=== PATIENT | female | born 1925 | race Caucasian/White ===

== ENCOUNTER → 2016-11-11 | Outpatient (REF) | payer MEDICARE ==
[~2016-11-11] MED LIST: /AMIO20TA; /PANT40TA; /WARF25TA; ACET500T2; ACET65TA; ALDA25TA2; AMIO10TA; AMLO2.5T; ANTI25TA; CALC500T49; CILOSTAZOL; COLA100C2; CORE12.5; FLEXERIL; HYDR25TA6; LEVO75TA2; LIDO5DIS; LISI10TA4; LISI20TA5; MAGN500T2; METF500T4; MIRALEX; MULTIVIT; NITR0.4S; TEKTURNA; VICO5TAB; VITAMIN D; VITAMIN D50000 UNT; ZEBE5TAB; ZINC220T2
[2016-11-11 14:01] LABS: ALBUMIN 3.8 GM/DL (3.2-5.2); ALBUMIN/GLOBULIN RATIO 1.09 (1.00-1.93); BILIRUBIN,TOTAL 0.3 MG/DL (0.2-1.0); CALCIUM LEVEL 8.5 MG/DL (8.8-10.2); CREATININE FOR GFR 2.11 MG/DL (0.55-1.02); FREE T4 1.55 NG/DL (0.76-1.46); GLOMERULAR FILTRATION RATE 23.5 (>32); TOTAL PROTEIN 7.3 GM/DL (6.4-8.2)
[2016-11-11 14:02] LABS: POTASSIUM SERUM 5.4 MEQ/L (3.5-5.1)
== END ==
LOC: M SFHCADAM 11:00
PROVIDERS: ATTEND Family Medicine
DX: N18.4 Chronic kidney disease, stage 4 (severe) (principal); E11.8 Type 2 diabetes mellitus with unspecified complications; E03.9 Hypothyroidism, unspecified; I65.29 Occlusion and stenosis of unspecified carotid artery
CPT/HCPCS: 80053; 80061; 82306; 84439; 84443; 85610; G0463

== ENCOUNTER → 2016-11-12 | Outpatient (REF) | payer MEDICARE ==
[2016-11-12 12:10] LABS: MEAN CORPUSCULAR HEMOGLOBIN 33.6 pg (27.0-33.0); MEAN CORPUSCULAR HGB CONC 32.5 g/dl (32.0-36.5); MEAN CORPUSCULAR VOLUME 103.5 fl (80.0-96.0); RED CELL DISTRIBUTION WIDTH 14.2 % (11.5-14.5); WHITE BLOOD COUNT 2.3 K/mm3 (4.0-10.0)
[2016-11-12 12:43] LABS: FREE T4 1.46 NG/DL (0.76-1.46)
== END ==
LOC: M SFHCADAM 09:37
PROVIDERS: ATTEND Family Medicine
DX: N18.4 Chronic kidney disease, stage 4 (severe) (principal); E03.9 Hypothyroidism, unspecified; E11.8 Type 2 diabetes mellitus with unspecified complications

== ENCOUNTER → 2016-11-17 | Outpatient (CLI) | payer MEDICARE ==
--- NOTE | 2016-11-17 15:11 | REP ---
Clinical: Trauma. Comparison: 03/13/2015. Findings: Age-related atrophy and microvascular ischemic changes are appreciated. The ventricles and sulci are symmetric. Llanes-white differentiation is maintained. There is no evidence for acute intracranial hemorrhage, mass/mass effect, pathology or infarction. No extra-axial fluid collection. Calvarium is intact. Paranasal sinuses and mastoid air cells are clear. Impression: Age related atrophy and microvascular ischemic changes. No acute intracranial hemorrhage, infarction, or mass/mass effect. Signed by Lisandro Delgado MD 11/17/2016 03:03 P
== END ==
LOC: M RAD 14:37
PROVIDERS: ATTEND Physician Assistant
DX: S09.90XA Unspecified injury of head, initial encounter (principal); W18.09XA Striking against other object with subsequent fall, initial encounter; Y92.003 Bedroom of unspecified non-institutional (private) residence as the place of occurrence of the external cause; Y93.01 Activity, walking, marching and hiking; Y99.8 Other external cause status
CPT/HCPCS: 70450; G0463

== ENCOUNTER → 2016-11-25 | Outpatient (REF) | payer MEDICARE ==
[2016-11-25 19:03] LABS: CALCIUM LEVEL 8.8 MG/DL (8.8-10.2); CREATININE FOR GFR 2.19 MG/DL (0.55-1.02); GLOMERULAR FILTRATION RATE 22.5 (>32)
[2016-11-25 19:07] LABS: POTASSIUM SERUM 5.7 MEQ/L (3.5-5.1)
== END ==
LOC: M LABDRAW1 16:46
PROVIDERS: ATTEND Surgery Vascular Surgery
DX: I65.22 Occlusion and stenosis of left carotid artery (principal)
CPT/HCPCS: 36415; 80048; 85610; G0463

== ENCOUNTER → 2016-11-27 | Outpatient (CLI) | payer MEDICARE ==
[~2016-11-27] MED LIST changes: +HEPARIN 1,000 UNITS/ML 10ML VIAL (FOR RADIOLOGY& DIALYSIS ONLY) As Ordered ONE; +ISOVUE-300 61% 50ML VIAL (Q9967) As Ordered ONE; +MIDAZOLAM INJ 2 MG/2 ML VIAL (J2250) As Ordered ONE; +PROTAMINE SULF INJ 50 MG/5 ML VIAL (J2720) As Ordered ONE; +fentaNYL 100 MCG/2 ML INJECTION (J3010) As Ordered ONE
--- NOTE | 2016-12-03 18:48 | REP ---
IMAGES FOR CAROTID ANGIOGRAM: Clinical history: Carotid stenosis. Multiple images are performed during carotid angiogram. Catheter is seen selectively opacifying the vertebral and carotid arteries. 2.3 minutes fluoroscopy time utilized for the procedure. Signed by Te Llanes MD 12/03/2016 07:18 P
--- NOTE | 2016-12-24 13:19 | RO ---
DATE OF PROCEDURE: 11/27/2016 PREPROCEDURE DIAGNOSES: Left carotid artery stenosis, hypertension, dizziness. POSTPROCEDURE DIAGNOSES: Left carotid artery stenosis, hypertension, dizziness. SURGEON: Dr. Jose Jasso PHYSICAL THERAPY AIDES TEACHER: SHAYNE Martinez PROCEDURE: Selective left common carotid artery catheter placement with angiogram and run off, selective right innominate artery catheter placement with angiogram and run off, Mynx closure of the right common femoral arteriotomy. ANESTHESIA: Local with sedation with 0.5 mg of Versed, 25 mcg of Fentanyl, 10 mL of 2% lidocaine. Heparin 5000 units. ESTIMATED BLOOD LOSS: FLUORO TIME: 2.3 minutes. CONTRAST: 3 mL. SEDATION TIME: 8:15 a.m. to 8:37 a.m. with the sedation administered by the RN in the room, as well as cardiopulmonary monitoring performed by the nurse in the room under my direction. I was present for and directed the entire case. COMPLICATIONS: None. DRAINS: None. SPECIMENS: None. IMPLANTS: None. INDICATION: Patient is an 89-year-old female who had dizziness and hypertension and was evaluated and found to have a high grade left internal carotid artery stenosis, which at the time of the evaluation she was recommended to undergo a carotid endarterectomy. The patient followed up for a second opinion and I recommended a left carotid artery angiogram with possible angioplasty and/or stent and/or no intervention. The patient agreed to proceed with a carotid artery angiogram. Risks, included, but were not limited to infection, bleeding, cerebrovascular accident, renal failure requiring hemodialysis, myocardial infarction, pulmonary embolism, deep vein thrombosis (DVT), possible need for open surgical intervention, retroperitoneal hematoma, loss of limb, loss of life and poor outcome. Patient understands, accepts these risks and consents to proceed. Alternative treatment options were also discussed with the patient, which included no intervention. PROCEDURE: The patient was taken to the angiography suite and placed supine on the angiography room table. Prepped and draped in the standard surgical fashion after a time out was completed confirming the correct patient and procedure. The right common femoral artery was then cannulated with a micropuncture needle after anesthetizing the overlying skin with 1% lidocaine. The micropuncture wire was advanced through the micropuncture needle, which was upsized. A Guest[employer] wire was advanced through the micropuncture sheath, which was upsized to a #5-Gambian sheath. A burn catheter was then advanced through the aorta and into the right innominate artery and then angiogram performed. Initially, this was thought to be the left common carotid artery. The left common carotid artery was then selectively cannulated and angiogram performed. Catheters and wires were then removed. A Mynx closure device was used to close the arteriotomy in the right common femoral artery with an additional 15 minutes of adjunctive pressure applied for hemostasis. Dressings were then applied. Patient tolerated the procedure well. All instrument, sponge and needle counts were correct at the end of the case. There were no complications. Dr. Jasso was present for and directed the entire case. Patient was transferred to the recovery room and subsequently discharged in stable condition. RADIOLOGIC SUPERVISION INTERPRETATION: The initial selective right innominate artery angiogram showed the vertebral artery to be widely patent, as well as some diffuse plaquing of the common carotid artery and minor narrowing of the right internal carotid artery at its origin. The external carotid artery was patent, as well as the proximal right subclavian artery. The common carotid artery on the left was then selectively cannulated and an angiogram performed, which showed an approximate 80 to 85% stenosis in the left internal carotid artery shortly after its takeoff. There was approximate 50% stenosis in the left external carotid artery. The common carotid artery was widely patent. There was no intracerebral disease noted. Contrast limitations prevented full imaging of the cerebral vasculature. A Mynx closure device was used to close the arteriotomy in the right common femoral artery.
== END ==
LOC: M IRPRO 06:54
PROVIDERS: ATTEND Surgery Vascular Surgery
DX: I65.22 Occlusion and stenosis of left carotid artery (principal); Z88.0 Allergy status to penicillin; Z88.8 Allergy status to other drugs, medicaments and biological substances
CPT/HCPCS: 36223; 36225; 36227; 99152; C1760; C1769; C1887; C1894; J2250; J2720; J3010; Q9967

== ENCOUNTER → 2017-01-07 | Outpatient (REF) | payer MEDICARE ==
[~2017-01-07] MED LIST changes: -HEPARIN 1,000 UNITS/ML 10ML VIAL (FOR RADIOLOGY& DIALYSIS ONLY) As Ordered ONE; -ISOVUE-300 61% 50ML VIAL (Q9967) As Ordered ONE; -MIDAZOLAM INJ 2 MG/2 ML VIAL (J2250) As Ordered ONE; -PROTAMINE SULF INJ 50 MG/5 ML VIAL (J2720) As Ordered ONE; -fentaNYL 100 MCG/2 ML INJECTION (J3010) As Ordered ONE
== END ==
LOC: M SFHCADAM 09:56
PROVIDERS: ATTEND Family Medicine
DX: D53.9 Nutritional anemia, unspecified (principal); E11.8 Type 2 diabetes mellitus with unspecified complications; Z79.01 Long term (current) use of anticoagulants; E03.9 Hypothyroidism, unspecified; E78.2 Mixed hyperlipidemia

== ENCOUNTER → 2017-01-08 | Outpatient (REF) | payer MEDICARE ==
[2017-01-08 10:43] LABS: BASO % 0.8 % (0.0-1.0); EOS # 0.2 K/mm3 (0.0-0.50); EOS % 6.8 % (0.0-3.0); LARGE UNSTAINED CELL # 0.1 K/mm3 (0.0-0.4); LARGE UNSTAINED CELL % 2.6 % (0.0-4.0); LYMPH # 0.9 K/mm3 (1.5-4.5); LYMPH % 33.7 % (24.0-44.0); MEAN CORPUSCULAR HEMOGLOBIN 33.6 pg (27.0-33.0); MEAN CORPUSCULAR HGB CONC 33.1 g/dl (32.0-36.5); MEAN CORPUSCULAR VOLUME 101.5 fl (80.0-96.0); MONO # 0.2 K/mm3 (0.0-0.8); MONO % 6.1 % (0.0-5.0); NEUTROPHILS # 1.2 K/mm3 (1.8-7.7); NEUTROPHILS % 50.1 % (36.0-66.0); PLATELET COUNT, AUTOMATED 194 k/mm3 (150-450); RED CELL DISTRIBUTION WIDTH 13.4 % (11.5-14.5); RETIC HEMOGLOBIN CONTENT CHr 34.3 PG (24-36); RETICULOCYTE ABSOLUTE ADVIA212 60 x10(9)/L (17-77); WHITE BLOOD COUNT 2.5 K/mm3 (4.0-10.0)
[2017-01-08 11:25] LABS: ALBUMIN 3.8 GM/DL (3.2-5.2); ALBUMIN/GLOBULIN RATIO 1.06 (1.00-1.93); ALKALINE PHOSPHATASE 124 U/L (45-117); ALT/SGPT 24 U/L (12-78); ANION GAP 11 MEQ/L (8-16); AST/SGOT 18 U/L (15-37); BILIRUBIN,TOTAL 0.4 MG/DL (0.2-1.0); BLOOD UREA NITROGEN 26 MG/DL (7-18); CALCIUM LEVEL 8.7 MG/DL (8.8-10.2); CARBON DIOXIDE LEVEL 23 MEQ/L (21-32); CHLORIDE LEVEL 107 MEQ/L (98-107); CHOLESTEROL LEVEL 233 MG/DL (<200); CREATININE FOR GFR 2.07 MG/DL (0.55-1.02); FERRITIN 24 NG/ML (8-252); FREE T4 1.41 NG/DL (0.76-1.46); GLUCOSE, FASTING 91 MG/DL (83-110); PERCENT SATURATION 18.9 % (13.2-37.4); POTASSIUM SERUM 4.9 MEQ/L (3.5-5.1); SODIUM LEVEL 141 MEQ/L (136-145); TOTAL IRON BINDING CAPACITY 375 UG/DL (250-450); TOTAL PROTEIN 7.4 GM/DL (6.4-8.2); TRIGLYCERIDES LEVEL 130 MG/DL (<150)
[2017-01-10 00:15] LABS: FREE KAPPA LIGHT CHAINS SERUM 34.4 mg/L (3.3-19.4); FREE LAMBDA LIGHT CHAINS SERUM 68.6 mg/L (5.7-26.3); KAPPA/LAMBDA RATIO SERUM 0.5 (0.26-1.65)
[2017-01-11 13:36] LABS: ALBUMIN 4.25 GM/DL (3.29-5.55); ALBUMIN % 57.4 % (55.8-66.1); GAMMA GLOBULIN % 6.4 % (11.1-18.8)
== END ==
LOC: M SFHCADAM 08:24
PROVIDERS: ATTEND Family Medicine
DX: D53.9 Nutritional anemia, unspecified (principal); E11.8 Type 2 diabetes mellitus with unspecified complications; E03.9 Hypothyroidism, unspecified; E78.2 Mixed hyperlipidemia

== ENCOUNTER → 2017-01-27 | Outpatient (REF) | payer MEDICARE | LOC: M LAB REF 12:59 | PROVIDERS: ATTEND Internal Medicine Nephrology | DX: N18.4 Chronic kidney disease, stage 4 (severe) (principal); Z79.899 Other long term (current) drug therapy ==

== ENCOUNTER → 2017-02-03 | Outpatient (REF) | payer MEDICARE | LOC: M SFHCADAM 13:42 | PROVIDERS: ATTEND Family Medicine | DX: R77.8 Other specified abnormalities of plasma proteins (principal); Z51.81 Encounter for therapeutic drug level monitoring; Z79.01 Long term (current) use of anticoagulants ==

== ENCOUNTER → 2017-02-15 | Outpatient (CLI) | payer MEDICARE ==
--- NOTE | 2017-02-15 13:53 | REP ---
RENAL AND BLADDER ULTRASOUND: Real-time sonographic evaluation of the kidneys performed and demonstrates left kidney to be atrophic. The right kidney measures 9.1 x 5.3 x 4.4 cm and the left kidney 7.7 x 4.8 x 5.1 cm. There is no hydronephrosis bilaterally. There are bilateral calcified intrarenal vessels. No renal mass is seen bilaterally. Urinary bladder is mildly distended with no definite mass or calculus. IMPRESSION: Left renal atrophy. No hydronephrosis. Signed by Te Llanes MD 02/16/2017 12:30 P
== END ==
LOC: M RAD 12:22
PROVIDERS: ATTEND Internal Medicine Nephrology
DX: N18.3 Chronic kidney disease, stage 3 (moderate) (principal); N26.1 Atrophy of kidney (terminal)

== ENCOUNTER → 2017-04-06 | Outpatient (REF) | payer MEDICARE ==
[2017-04-06 11:29] LABS: MEAN CORPUSCULAR HEMOGLOBIN 33.5 pg (27.0-33.0); MEAN CORPUSCULAR HGB CONC 32.6 g/dl (32.0-36.5); MEAN CORPUSCULAR VOLUME 102.8 fl (80.0-96.0); RED CELL DISTRIBUTION WIDTH 13.4 % (11.5-14.5); WHITE BLOOD COUNT 2.8 10^3/uL (4.0-10.0)
[2017-04-06 12:10] LABS: ALBUMIN 3.5 GM/DL (3.2-5.2); BILIRUBIN,TOTAL 0.4 MG/DL (0.2-1.0); CALCIUM LEVEL 8.8 MG/DL (8.8-10.2); CREATININE FOR GFR 1.93 MG/DL (0.55-1.02); FREE T4 1.48 NG/DL (0.76-1.46); MAGNESIUM LEVEL 2.2 MG/DL (1.8-2.4); POTASSIUM SERUM 4.9 MEQ/L (3.5-5.1)
== END ==
LOC: M SFHCPLAZ 09:24
PROVIDERS: ATTEND Family Medicine
DX: Z51.81 Encounter for therapeutic drug level monitoring (principal); Z79.01 Long term (current) use of anticoagulants; N18.4 Chronic kidney disease, stage 4 (severe); I48.91 Unspecified atrial fibrillation; E11.8 Type 2 diabetes mellitus with unspecified complications; E03.9 Hypothyroidism, unspecified; E78.2 Mixed hyperlipidemia
CPT/HCPCS: 36415; 80053; 80061; 83036; 83735; 84439; 84443; 85027; 85610; G0463